=== PATIENT | male | born 1960 | race Caucasian/White ===

== ENCOUNTER → 2020-02-16 11:38 | Outpatient (BNVA) | payer BC, SELFPAY | PROVIDERS: Visit Provider Family Medicine | DX: Z12.5 Encounter for screening for malignant neoplasm of prostate; Z95.0 Presence of cardiac pacemaker; I50.9 Heart failure, unspecified; E78.2 Mixed hyperlipidemia; I10 Essential (primary) hypertension | CPT/HCPCS: 80053; 80061; 85025; G0103 ==

== ENCOUNTER → 2020-03-02 13:08 | Outpatient (BNVA) | payer BC, SELFPAY | PROVIDERS: Visit Provider Family Medicine | DX: R73.9 Hyperglycemia, unspecified (principal) | CPT/HCPCS: 83036 ==

== ENCOUNTER 2020-03-30 10:05 | Outpatient (CLI) | payer BC, SELFPAY ==
--- NOTE | 2020-03-30 10:15 | USCV_ITS ---
Tyree Ramirez Age: 59 Gender: M : 1960 Exam Date: 03/30/2020 10:39 Ordering Phys: Bryan Rueda MD ([email or web address]) Technologist: Maegan Montiel Exam Location: [facility] [place] Indication: BP: / HR: 70 Rhythm: Sinus Technical Quality: TDS MEASUREMENTS (Male / Female) Normal Values 2D ECHO LV Diastolic Diameter PLAX 5.0 cm 4.2 - 5.9 / 3.9 - 5.3 cm LV Systolic Diameter PLAX 3.8 cm LV Chamber Size 5.9 cm IVS Diastolic Thickness 2.0 cm 0.6 - 1.0 / 0.6 - 0.9 cm IVS Systolic Thickness 2.3 cm LVPW Diastolic Thickness 1.7 cm 0.6 - 1.0 / 0.6 - 0.9 cm LVPW Systolic Thickness 1.8 cm RV Chamber Size 3.5 cm LVOT Diameter 2.0 cm LV Ejection Fraction 2D Teich 46.8 % LV Ejection Fraction MOD 2C 46.4 % LV Ejection Fraction 2C AL 47.5 % LA Diameter 3.6 cm LA Width 3.2 cm LA Height 3.8 cm RA Width 3.9 cm RA Height 3.8 cm Aorta at Sinotubular Diameter 4.0 cm M-MODE LV Diastolic Diameter MM 7.6 cm 4.2 - 5.9 / 3.9 - 5.3 cm LV Systolic Diameter MM 6.1 cm LV Ejection Fraction MM Teich 39.5 % IVS Diastolic Thickness MM 1.9 cm 0.6 - 1.0 / 0.6 - 0.9 cm IVS Systolic Thickness MM 2.5 cm LVPW Diastolic Thickness MM 2.1 cm 0.6 - 1.0 / 0.6 - 0.9 cm LVPW Systolic Thickness MM 2.9 cm RV Diastolic Diameter MM 0.9 cm Aortic Annulus Diameter 4.9 cm LA Ao Ratio MM 0.8 MV E Point Septal Separation 2.0 cm DOPPLER AV Peak Velocity 131.0 cm/s LVOT Peak Velocity 63.0 cm/s AV Area Cont Eq vti 1.7 cm squared AV Area Cont Eq pk 1.5 cm squared MV Area PHT 5.4 cm squared Mitral E to A Ratio 1.2 MV E' Velocity 5.0 cm/s Mitral E to MV E' Ratio 16.6 Mitral E to LV E' Lateral Ratio 15.3 Mitral E to LV E' Septal Ratio 18.7 TR Peak Velocity 205.9 cm/s TR Peak Gradient 17.0 mmHg TR Mean Velocity 158.3 cm/s TR Mean Gradient 11.4 mmHg TR Velocity Time Integral 62.0 cm TV Peak E Velocity 53.0 cm/s Right Atrial Pressure 3.0 mmHg Pulmonary Artery Systolic Pressu 20.0 mmHg PV Peak Velocity 48.0 cm/s RV Acceleration Time 0.2 s RV Ejection Time 0.3 s RV AcT/ET 0.5 FINDINGS Left Ventricle Mildly increased left ventricular cavity size. Diffuse hypokinesia left ventricle with ejection fraction around 45%.Grade I/IV diastolic dysfunction (abnormal relaxation filling pattern), normal to mildly elevated filling pressures. Right Ventricle Pacemaker wire is noted.normal right ventricular size and systolic function. Right Atrium Pacemaker wire is noted Left Atrium Normal left atrial size. Mitral Valve Thickened mitral valve. Aortic Valve Thickened aortic valve. Tricuspid Valve No gross abnormalities noted Pulmonic Valve Pulmonic valve not well visualized. Pericardium No pericardial effusion. Aorta Normal aortic annulus size. CONCLUSIONS Mildly increased left ventricular cavity size. Diffuse hypokinesia left ventricle with ejection fraction around 45%. Grade I/IV diastolic dysfunction (abnormal relaxation filling pattern), normal to mildly elevated filling pressures. Thickened aortic and mitral valves. Pacemaker wire is noted in the right atrium right ventricle. No significant stenotic or regurgitant lesions. Technically difficult study because of the poor ultrasonic window. No previous studies are available for comparison Dr Bryan Rueda MD [facility] (Electronically Signed) Final Date: 30 March 2020 18:51 S
== END 2020-03-30 10:06 | disposition home or self-care (01) ==
LOC: RAD 10:12
PROVIDERS: PCP Family Medicine; Visit Provider Internal Medicine Cardiovascular Disease
DX: I35.0 Nonrheumatic aortic (valve) stenosis (principal); I42.8 Other cardiomyopathies; I05.9 Rheumatic mitral valve disease, unspecified
CPT/HCPCS: 93306

== ENCOUNTER 2020-05-04 08:34 | Outpatient (CLI) | payer BC, SELFPAY ==
[2020-05-04 08:52] VITALS: BMI 36.9
--- NOTE | 2020-05-04 08:56 | ECG_ITS ---
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 Interpretive Statements NAME OF STUDY: LEXISCAN SESTAMIBI STRESS TEST INDICATION: Decreased EF PROCEDURE: At the baseline, the EKG revealed 100% AV paced rhythm. Further interpretation is not possible. The baseline blood pressure was 135/84 mm Hg with a heart rate of 70 beats/min. Lexiscan was infused over a period of 20 seconds. A total of 0.4 milligrams of Lexiscan was infused. The stress phase was continued for a total of 5 minutes. Heart rate at the end of the stress phase was 72 with a blood pressure 129/73. The EKG at the peak infusion revealed no significant changes. Sestamibi was injected 20 seconds after the Lexiscan infusion. Blood pressure at the end of the recovery phase was 132/83 with a heart rate of 70 per minute. CONCLUSION: 1. No significant EKG changes with the LexiScan infusion 2. No LexiScan induced chest pain or cardiac arrhythmia 3. Normal blood pressure and heart rate response 4. Sestamibi/sestamibi perfusion scan pending; see separate report. Electronically Signed On 05-05-2020 11:02:41 CDT by Bryan Rueda M.D. [id number]
--- NOTE | 2020-05-04 08:57 | NMCV_ITS ---
NM mateo perf SPECT r/s* [id number] Tyree Ramirez Age: 59 Gender: M : 1960 Exam Date: 05/04/2020 09:39 Ordering Phys: Bryan Rueda MD ([email or web address]) Technologist: MARY Vazquez Exam Location: [facility] Indications: OTHER CARDIOMYOPATHIES STRESS TEST [facility] IMAGE PROTOCOL Rest/Stress 1 Lexiscan Day Radiopharmaceutical Dose (mCi) Administration Site Administered by Rest: Tc-99m 10.7 IV MARY Vazquez Sestamibi Stress:Tc-99m 32.8 IV MARY Vazquez Sestamibi Rest: 04-May-2020 60 Discovery 630 Stress: 04-May-2020 30 Discovery 630 0.4mg Lexiscan. Images obtained in supine and prone position. SPECT RESULTS Technical Quality: Excellent Raw Data Analysis: Normal Image Corrections: No attenuation or motion correction applied Summed Stress Score: 9 Summed Rest Score: 18 Summed Difference Score: 0 PERFUSION FINDINGS Moderate area of decreased tracer uptake in the basal mid and apical inferior, mid inferolateral, apical lateral and LV apex. Subtle area of reversibility was noted in the mid inferolateral region. FUNCTIONAL RESULTS (calculated via Gated SPECT) Stress Image LV EF (%): 30 Stress EDV (mL):334 TID: 1.09 Stress ESV (mL):235 FUNCTIONAL FINDINGS: Segmental wall motion analysis revealing severe diffuse hypokinesia left ventricle IMPRESSIONS 1. Myocardial perfusion imaging revealing a moderate area of decreased tracer uptake in the inferior and inferolateral regions with a subtle area of reversibility in the mid inferolateral region, suggestive of myocardial scarring in the distribution of the right coronary artery/circumflex artery with a very small area astrid-infarction ischemia. 2. Moderately diminished LV ejection fraction 30%. 3. Severe diffuse hypokinesia of the left ventricle. 4. Markedly dilated LV cavity with an end-systolic volume of 235 mL The above features may suggest some form of nonischemic cardiomyopathy with a possible small area of ischemia. No similar previous studies are available for comparison Dr Bryan Rueda MD [facility] (Electronically Signed) Final Date: 04 May 2020 20:57 S
--- NOTE | 2020-05-04 10:40 | SUR.PREOP ---
Patient reports no pain or discomfort prior to the start of the procedure.
[2020-05-04] MEDS: regadenoson 0.4 Mg/5 ml Syringe IVP (10:42)
[2020-05-04 11:19] VITALS: BP 154/62; PULSE 62
== END 2020-05-04 08:35 | disposition home or self-care (01) ==
LOC: CDL 08:36
PROVIDERS: PCP Family Medicine; Visit Provider Internal Medicine Cardiovascular Disease
DX: I42.8 Other cardiomyopathies (principal); I50.22 Chronic systolic (congestive) heart failure
CPT/HCPCS: 78452; 93017; A9500; J2785

== ENCOUNTER 2020-05-08 12:59 | Day surgery (SDC) | payer BC, SELFPAY ==
[2020-05-08] VITALS (13 sets, daily range): BP systolic 95–145; BP diastolic 44–88; PULSE 68–80; RESP 12–18; TEMP 36.4–39.6; O2SAT 92–97; BMI 36.9
--- NOTE | 2020-05-08 13:06 | W.ED.ABDPA2 ---
HPI - Abdominal Pain General: Chief Complaint: Abdominal Pain Stated Complaint: stomach/leg cramp /throwing up Time Seen by Provider: 05/08/20 13:03 Source: patient Mode of arrival: ambulatory History of Present Illness: HPI narrative: 59-year-old male who states he has been having right lower quadrant abdominal pain over the last day. He states that started this morning is very sharp in nature. He states it is worsened throughout the day and he has had some nausea and vomiting. He denies any diarrhea. He has had diverticulitis in the past. He has had no other abdominal surgeries. He denies any worsening or improving factors at this time. He has been afebrile. MD elicited complaint: abdominal pain Pertinent past history: none Onset (ago): hour(s) Pain Consistency: constant Location: RLQ Severity: moderate Quality: stabbing Radiation: none Exacerbating factors: nothing Relieving factors: nothing Associated Symptoms: Reports nausea and vomiting; Denies chills, dysuria and fever(s) Review of Systems Const: Denies: fever(s), chills, body aches or change in appetite Eyes: Denies: blurry vision or eye discomfort ENMT: Denies: throat pain or dental pain Card: Denies: chest pain Resp: Denies: dyspnea GI: Reports: abdominal pain, nausea and vomiting : Denies: dysuria Musc: Denies: neck pain or back pain Skin/Breast: Denies: rash Neuro: Denies: headache(s) Psych: Denies: depression Wing/Lymph: Denies: easy bruising All/Imm: Denies: urticaria PFSH ED PFSH: Medical History Benign essential hypertension with target blood pressure below 140/90 CHF (congestive heart failure) Elevated blood sugar Non-ischemic cardiomyopathy Pacemaker Syncope Surgical History S/P internal cardiac defibrillator procedure The WOUND SPECIALIST-D was interrogated today. Patient was found to have episodes of atrial flutter/fibrillation. Social History Smoking and tobacco status: never smoked Alcohol intake: never Physical Exam Const: COMMON NORMALS: no acute distress, patient oriented x3 and healthy appearing HENMT: COMMON NORMALS: normocephalic and atraumatic HEAD & SCALP: normocephalic and atraumatic Eye: COMMON NORMALS: Equal, round and reactive pupils present and EOMs intact bilaterally PUPIL: Yes Equal, round and reactive pupils present Neck/C-Spine: COMMON NORMALS: full ROM and supple Chest: COMMONS NORMALS: normal inspection of the chest and normal palpation of entire chest wall Resp: COMMON NORMALS: normal respiratory effort, No retractions, No use of accessory muscles and clear to auscultation bilaterally AUSCULTATION: clear to auscultation bilaterally Cardio: COMMON NORMALS: regular rate, regular rhythm and No murmurs present (Cardio) RATE: regular rate RHYTHM: regular rhythm GI: COMMON NORMALS: Normal to inspection, nondistended, normoactive bowel sounds present, Soft to palpation and no masses PALPATION: Yes Soft to palpation and Yes Tenderness to palpation present (GI) Details: RLQ Extremity: COMMON NORMALS: normal to inspection and full ROM Neuro: COMMON NORMALS: patient oriented x3, moves all extremities and no focal motor deficits Psych: COMMON NORMALS: mental status grossly normal, Normal thought process present and cooperative THOUGHT PROCESS: Normal thought process present Skin: COMMON NORMALS: no rashes or lesions noted and no wounds GENERAL SKIN EXAM: no rashes or lesions noted Course Vital Signs: Vital signs: Vital Signs Temperature 97.6 F 05/08/20 13:04 Pulse Rate 80 05/08/20 13:04 Respiratory Rate 18 05/08/20 13:32 Blood Pressure 128/83 05/08/20 13:04 Pulse Oximetry 96 05/08/20 13:04 MDM - Abdominal Pain MDM Narrative: Medical decision making narrative: Patient presents here with appendicitis. Patient is well-appearing here and is not septic. I spoke to Dr. Escamilla who is come to see patient will take him to the OR. Lab Data: Labs: Lab Results 05/08/20 05/08/20 Range/Units 13:19 13:19 WBC 17.3 H (4.0-10.0) 10^3/ uL RBC 4.60 (4.1-5.3) 10^6/u L Hgb 14.0 (11.7-16.6) g/dL Hct 43.9 (42.0-52.0) % MCV 95.4 H (80-94) fL MCH 30.4 (28.0-34.0) pg MCHC 31.9 (30.0-36.0) g/dL RDW 12.8 (12.1-15.1) % Plt Count 210 (130-400) 10^3/c mm MPV 10.6 H (7.4-10.4) fL Neut % (Auto) 84.5 % Lymph % (Auto) 6.9 % [place] % (Auto) 7.9 % Eos % (Auto) 0.1 % Baso % (Auto) 0.3 % Neut # (Auto) 14.61 H (1.8-7.7) 10^3/u L Lymph # (Auto) 1.2 (0.8-4.8) 10^3/u L [place] # (Auto) 1.4 H (0.2-0.9) 10^3/u L Eos # (Auto) 0.0 (0.0-0.8) 10^3/u L Baso # (Auto) 0.1 (0.0-0.1) 10^3/u L Nucleated RBC % (a uto) 0 % Nucleated RBCs # 0.0 /100WBC Sodium 138 (136-145) mmol/L Potassium 4.4 (3.5-5.1) mmol/L Chloride 105 (98-107) mmol/L Carbon Dioxide 24 (22-29) mmol/L Anion Gap 13.4 (5-19) BUN 13 (6-20) mg/dL Creatinine 0.7 (0.7-1.2) mg/dL GFR Calculation 116.2 (90-130) mL/min Glucose 171 H (65-115) mg/dL Calculated Osmolal ity 286 (285-295) mOsm/k g Calcium 9.1 (8.5-10.5) mg/dL Total Bilirubin 0.7 (0.15-1.2) mg/dL AST 38 (0-40) U/L ALT 39 (0-41) U/L Alkaline Phosphata se 88 (40-130) IU/L Total Protein 7.7 (6.6-8.7) g/dL Albumin 4.7 (3.5-5.2) g/dL Globulin 3.0 (1.3-4.6) g/dL Lipase 17 (13-60) U/L Imaging Data ^: CT Abd/Pel: Attestation: I personally reviewed and interpreted this imaging study as follows: Radiologist's impression: [address] [place] [address] CT Scan Report Signed Patient: Tyree Ramirez Unit #: [id number] : 1960 Age/Sex: 59 / M ADM Date: 05/08/20 Loc: ER Room/Bed: Attending Dr: Ordering Provider/Ordering MD: Holger Pozo MD Date of Service: 05/08/20 Procedure(s): CT abdomen pelvis w con* [id number] Accession Number(s): [id number] Report Number: [id number] PROCEDURE INFORMATION: Exam: CT Abdomen And Pelvis With Contrast Exam date and time: 05/08/2020 1:12 PM Age: 59 years old Clinical indication: Abdominal pain; Localized; Right lower quadrant (rlq); Patient HX: Rlq this am, history of diverticulitis; Additional info: Abd pain TECHNIQUE: Imaging protocol: Computed tomography of the abdomen and pelvis with intravenous contrast. Radiation optimization: All CT scans at this facility use at least one of these dose optimization techniques: automated exposure control; mA and/or kV adjustment per patient size (includes targeted exams where dose is matched to clinical indication); or iterative reconstruction. Contrast material: OMNI 300; Contrast volume: 95 ml; Contrast route: INTRAVENOUS (IV); COMPARISON: No relevant prior studies available. RADIATION DOSE METRICS: Total DLP (mGy-cm): 1642.24 FINDINGS: Liver: Normal. No mass. Gallbladder and bile ducts: Normal. No calcified stones. No ductal dilation. Pancreas: Normal. No ductal dilation. Spleen: Normal. No splenomegaly. Adrenals: Normal. No mass. Kidneys and ureters: Normal. No hydronephrosis. Stomach and bowel: Colonic diverticula are present although there are no CT findings to suggest diverticulitis. No bowel obstruction or wall thickening. Appendix: The appendix is distended with a diameter of 1.4 cm. There is associated inflammatory change. There is an appendicolith. Intraperitoneal space: Unremarkable. No free air. No significant fluid collection. Vasculature: Unremarkable. No abdominal aortic aneurysm. Lymph nodes: Unremarkable. No enlarged lymph nodes. Bladder: Unremarkable as visualized. Reproductive: Unremarkable as visualized. Bones/joints: Degenerative change is identified in the spine. There is no evidence for acute fracture or malalignment. Soft tissues: There is fat in the right inguinal canal. There is a fat containing periumbilical hernia. CT/CT abdomen pelvis w con* [id number] IMPRESSION: Findings are consistent with acute appendicitis. Discharge Plan Discharge Patient Disposition: Admitted As Inpatient Clinical Impression: Acute appendicitis Qualifiers: Acute appendicitis type: unspecified acute appendicitis type Qualified Code(s): K35.80 - Unspecified acute appendicitis Condition: Stable Referrals: Inez Velásquez MD [Primary Care Provider] - Coding Level of Care Code ED Chute Worker for g Fwd Exam Comprehensive
[2020-05-08] MEDS: iohexol 300 mg/mL 100 mL Btl IV (13:27)
[2020-05-08 13:28] LABS: Basophils # 0.1 10^3/uL (0.0-0.1); Basophils % 0.3 %; Eosinophils % 0.1 %; Hematocrit 43.9 % (42.0-52.0); Lymphocytes # 1.2 10^3/uL (0.8-4.8); Lymphocytes % 6.9 %; Mean Corpuscular HGB Conc 31.9 g/dL (30.0-36.0); Mean Corpuscular Hemoglobin 30.4 pg (28.0-34.0); Mean Corpuscular Volume 95.4 fL (80-94); Mean Platelet Volume 10.6 fL (7.4-10.4); Monocytes # 1.4 10^3/uL (0.2-0.9); Monocytes % 7.9 %; Neutrophils # 14.61 10^3/uL (1.8-7.7); Neutrophils % 84.5 %; Nucleated Red Blood Cells % 0 %; Platelet Count 210 10^3/cmm (130-400); Red Cell Distribution Width 12.8 % (12.1-15.1); White Blood Count 17.3 10^3/uL (4.0-10.0)
[2020-05-08] MEDS: sodium chloride 0.9% 1,000 ML 999 ML IV (13:29)
[2020-05-08] MEDS: ondansetron 2 mg/ML SDV 2 mL 4 MG IVP (13:31)
[2020-05-08] MEDS: morphine 4 mg/mL SDV 1 mL IVP (13:32)
[2020-05-08 13:44] LABS: Alanine Aminotransferase 39 U/L (0-41); Albumin Level 4.7 g/dL (3.5-5.2); Alkaline Phosphatase 88 IU/L (40-130); Anion Gap 13.4 (5-19); Aspartate Amino Transferase 38 U/L (0-40); Blood Urea Nitrogen 13 mg/dL (6-20); Calcium 9.1 mg/dL (8.5-10.5); Carbon Dioxide 24 mmol/L (22-29); Chloride 105 mmol/L (98-107); Glomerular Filtration Rate 116.2 mL/min (90-130); Glucose 171 mg/dL (65-115); Lipase 17 U/L (13-60); Osmolality Calculated 286 mOsm/kg (285-295); Potassium 4.4 mmol/L (3.5-5.1); Sodium 138 mmol/L (136-145); Total Bilirubin 0.7 mg/dL (0.15-1.2); Total Protein 7.7 g/dL (6.6-8.7)
[2020-05-08 14:13] LABS: Urine Appearance Hazy (CLEAR); Urine Color Yellow (Yellow)
[2020-05-08 14:14] LABS: Add Urine Microscopic? YES; Bilirubin Urine Neg (NEGATIVE); Blood Urine Neg (Negative); Glucose Urine UA 1+ (Normal); Ketones Urine Negative (Negative); Leukocyte Esterase Urine Trace (Negative); Nitrate Urine Negative (Negative); Protein Urine Neg (Negative); Specific Gravity, Urine 1.005 (1.005-1.030); Urobilinogen Urine 1 mg/dL (Negative); pH Urine 7 (5-7)
[2020-05-08 14:16] LABS: Add Urine Culture? Yes; Bacteria Urine 2+; RBC Urine 0-4 /hpf (0-2); Squamous Epithelial Cell Urine 0-4 (0-5); WBC Urine 15-25 /hpf (0-5)
--- NOTE | 2020-05-08 14:31 | PM.HP ---
Providers/Chief Complaint Admitting Physician: General Surgery Compa Escamilla MD Primary Care Provider: Inez Velásquez MD Chief Complaint: stomach/leg cramp /throwing up History of Present Illness Tyree Ramirez is a 59 year old male who awoke this morning around 2:30 AM with right lower quadrant abdominal pain. He denies any fevers or chills, but did develop nausea and vomited once this morning. There is no evidence of hematemesis. He says his bowel function has been normal. He eventually came to the hospital because of the worsening pain and a CAT scan revealed evidence of acute appendicitis. Review of Systems General: Reports: 10 or more systems reviewed and unremarkable except in HPI and below Const: Denies: fever(s) GI: Reports: abdominal pain, nausea and vomiting; Denies: change in bowel habits Medications/Allergies Home Medications Medication Instructions Recorded Confirmed Last Taken Type aspirin 81 mg tablet,delayed 81 mg PO DAILY 02/16/20 05/08/20 05/07/20 History release blood sugar diagnostic #50 each 03/08/20 05/08/20 Unknown Rx blood-glucose meter #1 each 03/08/20 05/08/20 Unknown Rx atorvastatin 80 mg tablet 80 mg PO DAILY #90 tab 04/20/20 05/08/20 05/08/20 Rx carvedilol 12.5 mg tablet 12.5 mg PO BID #180 tab 04/20/20 05/08/20 05/08/20 Rx digoxin 125 mcg (0.125 mg) tablet 125 mcg PO DAILY #90 tab 04/20/20 05/08/20 05/08/20 Rx furosemide 20 mg tablet 20 mg PO DAILY #90 tab 04/20/20 05/08/20 05/08/20 Rx lisinopril 5 mg tablet 5 mg PO DAILY #90 tab 04/20/20 05/08/20 05/08/20 Rx metformin 500 mg tablet 500 mg PO BID #180 tab 04/20/20 05/08/20 05/08/20 Rx potassium chloride 10 mEq 10 meq PO BID #180 cap 04/20/20 05/08/20 05/08/20 Rx capsule,extended release Allergies Allergy/AdvReac Type Severity Reaction Status Date / Time No Known Allergies Allergy Verified 05/08/20 13:42 PFSH Acute PFSH: Medical History (Updated 05/08/20 @ 14:34 by Compa Escamilla MD) Benign essential hypertension with target blood pressure below 140/90 CHF (congestive heart failure) Diverticulitis One episode around 2012 Diverticulosis Elevated blood sugar Non-ischemic cardiomyopathy Pacemaker Syncope Surgical History (Updated 05/08/20 @ 14:33 by Compa Escamilla MD) S/P internal cardiac defibrillator procedure The TRANSPORTATION PLANNING ENGINEER-D was interrogated. Patient was found to have episodes of atrial flutter/fibrillation. Wrist fracture, left Repaired with hardware Social History Smoking and tobacco status: never smoked Alcohol intake: never Vitals/I&O/Wt Last Vital Signs Temp 97.6 F 05/08/20 13:04 Pulse 70 05/08/20 14:15 Resp 18 05/08/20 14:15 BP 145/82 05/08/20 14:15 Pulse Ox 95 05/08/20 14:15 Weight last 48 hrs Weight 280 lb Physical Exam Narrative: EXAM NARRATIVE: The patient was encountered in his room in the emergency department. He does not appear to be in any acute distress. He actually has an elevated temperature now of 101.4F. The pupils seem equal. No carotid bruits are heard. The lungs are clear anteriorly. The heart is regular. The abdomen is moderately to severely obese but is soft. Bowel sounds may be slightly hypoactive. There is an incarcerated umbilical hernia that is not reducible but is only minimally tender. The patient has a positive Rovsing's sign. His maximum point of tenderness is over McBurney's point or slightly inferior to that in the right lower quadrant. No obvious masses are palpated. The extremities reveal no edema. Neurologically the patient appears to be grossly intact. Data : 05/08/20 13:19 05/08/20 13:19 CT Abd/Pel: Radiologist's impression: CT abdomen/pelvis 05/08/2020 iMPRESSION: Findings are consistent with acute appendicitis. A&P Assessment and plan (1) Acute appendicitis: I agree with the CT findings of acute appendicitis. The patient also has a fat-containing umbilical hernia as documented. I discussed appendicitis, appendectomy is, conservative management, etc. surgical risks including bleeding, infection, internal organ injury, etc. were all gone over. The patient seems understand and would like to proceed with an appendectomy today. The patient last had some soda around 11:00 this morning. We will plan to proceed with an laparoscopic or possibly open appendectomy this afternoon. Status: Acute Qualifiers: Acute appendicitis type: unspecified acute appendicitis type Qualified Code(s): K35.80 - Unspecified acute appendicitis (2) Umbilical hernia: I made the patient aware that we could put 1 of our ports right at the site and he would a repair of his umbilical hernia performed as part of this procedure. He is agreeable. Status: Acute Attestations Medical Necessity Statement*: The patient is anxious to try to go home today unless there is some contraindication found at the time of surgery. He will be kept as an outpatient for now. Coding Level of Care Code Acute Reception Clerk for [facility] Shaina Diagnoses Acute appendicitis K35.80 Acute appendicitis type: unspecified acute appendicitis type Umbilical hernia K42.9
--- NOTE | 2020-05-08 15:04 | P.ANESASSM_ITS ---
Pre-Anesthetic Assessment Pre-Anesthetic Assessment: Height/Weight: Height 1.85 m Weight 127.006 kg Temp Pulse Resp BP Pulse Ox 103.3 F H 70 18 127/88 97 05/08/20 14:48 05/08/20 14:48 05/08/20 14:48 05/08/20 14:48 05/08/20 14:48 Proposed Procedure: Operation Date: 05/08/20 14:45 Proposed Procedures p Laparoscopic Appendectomy(Not Applicable) - Compa Escamilla MD Last intake: Intake Last Liquid Date 05/08/20 Last Liquid Time 13:00 Last Solid Date 05/07/20 Last Solid Time 21:00 Exam: Pre-Anes Outpt Exam: oriented x 3 Airway: Submandibular: WNL Cervical ROM: WNL MP: 2 Dentition: Full History/ROS: Other (history of pacer/defib placed in [place].) Pulmonary: Pulmonary: Sleep apnea CV/HEM: CV/HEM: CAD and CHF (recent stress test negative for ischemia but with LVEF 30%. Patient has had several episodes where AICD fired, most recently 10/1999) Metabolic: Metabolic: Morbid obesity Anesthetic Plan: ASA status: 3E Anesthesia: General Other: plan RSI with glidescope available PFS Anesthesia PFSH: Medical History (Updated 05/08/20 @ 14:34 by Compa Escamilla MD) Benign essential hypertension with target blood pressure below 140/90 CHF (congestive heart failure) Diverticulitis One episode around 2012 Diverticulosis Elevated blood sugar Non-ischemic cardiomyopathy Pacemaker Syncope Surgical History (Updated 05/08/20 @ 14:55 by Compa Escamilla MD) S/P internal cardiac defibrillator procedure [place] Wrist fracture, left Repaired with hardware Social History Smoking and tobacco status: never smoked Alcohol intake: never Data Anesthesia CBC & Chem 7: 05/08/20 13:19 05/08/20 13:19 Other Labs: Laboratory Results - last 48 hr 05/08/20 05/08/20 05/08/20 13:19 13:19 13:49 WBC 17.3 H RBC 4.60 Hgb 14.0 Hct 43.9 MCV 95.4 H MCH 30.4 MCHC 31.9 RDW 12.8 Plt Count 210 MPV 10.6 H Neut % (Auto) 84.5 Lymph % (Auto) 6.9 [place] % (Auto) 7.9 Eos % (Auto) 0.1 Baso % (Auto) 0.3 Neut # (Auto) 14.61 H Lymph # (Auto) 1.2 [place] # (Auto) 1.4 H Eos # (Auto) 0.0 Baso # (Auto) 0.1 Nucleated RBC % (auto) 0 Nucleated RBCs # 0.0 Sodium 138 Potassium 4.4 Chloride 105 Carbon Dioxide 24 Anion Gap 13.4 BUN 13 Creatinine 0.7 GFR Calculation 116.2 Glucose 171 H Calculated Osmolality 286 Calcium 9.1 Total Bilirubin 0.7 AST 38 ALT 39 Alkaline Phosphatase 88 Total Protein 7.7 Albumin 4.7 Globulin 3.0 Lipase 17 Urine Color Yellow Urine Appearance Hazy A Urine pH 7 Ur Specific [place] 1.005 Urine Protein Neg Urine Glucose (UA) 1+ Urine Ketones Negative Urine Blood Neg Urine Nitrate Negative Urine Bilirubin Neg Urine Urobilinogen 1 H Ur Leukocyte Esterase Trace H Urine RBC 0-4 H Urine WBC 15-25 H Ur Squamous Epith Cells 0-4 H Amorphous Sediment Not Reportable Urine Bacteria 2+ H Cardiac Studies: No Data to Display
--- NOTE | 2020-05-08 15:06 | SUR.PREOP ---
PT AWAKE ALERT WITH AT BEDSIDE PT TO [facility] [place] [facility] PER CART PT ALERT TALKATIVE WITH OR NURSE AND ANESTHESIA, IV TO LT AC OR NURSE TO START WITH ORDERED ANTIBIOTICS. PT TEMP 103.3 ANESTHESIA AWARE.
[2020-05-08] MEDS: metroNIDAZOLE IV 500 MG/100 ML PREMIX 100 MG IV (15:25)
--- NOTE | 2020-05-08 15:53 | PM.OP ---
Operative Report Date of procedure: May 08, 2020 Pre-op Diagnosis: Acute appendicitis. Post-op diagnosis: same Procedure Done: Laparoscopic appendectomy. Specimens removed/disposition: Appendix. Surgeon: Compa Escamilla Anesthesia: General Estimated blood loss (mL): 5 Complications: None. Condition: stable Disposition: PACU Procedure: The patient was brought to the Operating Room and was placed in a supine position on the operating room table. General endotracheal anesthesia was induced. The abdomen was prepped and draped in a sterile fashion. A small vertical incision was carried out in the inferior aspect/base of the umbilicus. Blunt dissection was carried out down to the fascia, where the patient's hernia defect was identified. The surrounding herniated fatty tissue was freed from the subcutaneous tissue and was reduced through a defect measuring perhaps 1.5 cm in diameter. A stay suture of 0 Vicryl was placed on either side of the midline. The Jered port was placed directly into the peritoneal cavity through the hernia defect and was held in place with the inflatable balloon. The peritoneal cavity was insufflated with carbon dioxide. The laparoscope was used to inspect the peritoneal cavity. No gross abnormalities were initially noted. Two 5-millimeter ports were placed in the left lower quadrant under direct vision. The patient was tilted in a Trendelenburg position and slightly to the left side. A laparoscopic Dumont was used to elevate the cecum and the appendix was identified. The appendix was dilated and had some purulent material on its surface but no gross evidence of perforation was present. The mesoappendix appeared edematous. The appendix was freed using blunt dissection and was then elevated. The mesoappendix was divided using cautery to maintain hemostasis at the base of the appendix. The base of the appendix appeared healthy and was divided using an endoscopic stapler. The appendix was removed from the peritoneal cavity after being placed in a laparoscopic bag. The right lower quadrant and pelvis were irrigated. The staple line on the cecum was identified and appeared to be in good condition. The Jered port was removed from the umbilical site and the stay sutures of Vicryl were tied to each other vertically at the umbilicus. Some inverted interrupted sutures of 0 Prolene were also placed, closing the fascial/hernia defect so that it was airtight. A final round of irrigation was carried out in the right lower quadrant and the pelvis. No ongoing problems were seen. The remaining ports were removed from the abdominal wall as the pneumoperitoneum was evacuated. All skin incisions were closed using inverted interrupted sutures of 4-0 Vicryl. Benzoin and Steri-Strips were placed over the incisions and Band-Aids followed. The patient was taken to the Recovery Room in stable condition postoperatively.
--- NOTE | 2020-05-08 16:33 | SUR.PHASEII ---
Received patient from OR. All preop was done in ER.
== END 2020-05-08 17:43 | disposition home or self-care (01) ==
LOC: ER 13:57 → OPS 14:28
PROVIDERS: Emergency Provider Emergency Medicine; PCP Family Medicine; Visit Provider Surgery
PROC: 0DTJ4ZZ Resection of Appendix, Percutaneous Endoscopic Approach (ICD-10-PCS; CPT 44970; principal; 2020-05-08 14:45)
DX: K35.80 Unspecified acute appendicitis (principal); K42.9 Umbilical hernia without obstruction or gangrene; G47.30 Sleep apnea, unspecified; I25.10 Atherosclerotic heart disease of native coronary artery without angina pectoris; I50.9 Heart failure, unspecified; Z95.0 Presence of cardiac pacemaker; E66.01 Morbid (severe) obesity due to excess calories; Z68.36 Body mass index [BMI] 36.0-36.9, adult; Z79.82 Long term (current) use of aspirin
CPT/HCPCS: 44970; 12345; 36415; 74177; 80053; 81001; 83690; 85025; 87086; 88304; 96375; 99283; J0131; J0690; J2270; J2405; J2704; J2710; J2765; J3010; J3490; J7030; Q9967; S0030

== ENCOUNTER → 2020-06-01 11:19 | Outpatient (BNVA) | payer BC, SELFPAY | PROVIDERS: PCP Family Medicine; Visit Provider Family Medicine | DX: E11.9 Type 2 diabetes mellitus without complications (principal); E78.2 Mixed hyperlipidemia | CPT/HCPCS: 80053; 80061; 83036 ==

== ENCOUNTER 2020-06-21 12:00 | Outpatient (CLI) | payer BC, SELFPAY | END 2020-06-21 12:01 | disposition home or self-care (01) | LOC: SLEEP 06-22 11:40 | PROVIDERS: PCP Family Medicine; Visit Provider Family Medicine | DX: G47.30 Sleep apnea, unspecified (principal) | CPT/HCPCS: G0399 ==

== ENCOUNTER → 2020-07-12 11:26 | Outpatient (BNVA) | payer BC, SELFPAY | PROVIDERS: PCP Family Medicine; Visit Provider Nurse Practitioner Family | DX: Z11.59 Encounter for screening for other viral diseases (principal); Z20.828 Contact with and (suspected) exposure to other viral communicable diseases; J06.9 Acute upper respiratory infection, unspecified | CPT/HCPCS: 87635 ==

== ENCOUNTER 2020-09-12 20:00 | Outpatient (CLI) | payer BC, SELFPAY | END 2020-09-12 20:01 | disposition home or self-care (01) | LOC: SLEEP 09-13 09:59 | PROVIDERS: PCP Family Medicine; Visit Provider Family Medicine | DX: G47.33 Obstructive sleep apnea (adult) (pediatric) (principal) | CPT/HCPCS: 95811 ==

== ENCOUNTER → 2020-12-08 11:55 | Outpatient (BNVA) | payer SELFPAY | PROVIDERS: PCP Family Medicine; Visit Provider Family Medicine | DX: M25.512 Pain in left shoulder (principal); E11.9 Type 2 diabetes mellitus without complications; I10 Essential (primary) hypertension; E78.2 Mixed hyperlipidemia | CPT/HCPCS: 73030; 80053; 80061; 83036; 84443; 85025 ==

== ENCOUNTER → 2021-02-08 12:46 | Outpatient (BNVA) | payer OTHER, SELFPAY | PROVIDERS: PCP Family Medicine; Visit Provider Internal Medicine Cardiovascular Disease | DX: R06.02 Shortness of breath (principal); I42.8 Other cardiomyopathies; I50.33 Acute on chronic diastolic (congestive) heart failure | CPT/HCPCS: 80048; 83880 ==

== ENCOUNTER → 2021-03-19 16:43 | Outpatient (BNVA) | payer OTHER, SELFPAY | PROVIDERS: PCP Family Medicine; Visit Provider Nurse Practitioner Family | DX: I50.22 Chronic systolic (congestive) heart failure (principal) | CPT/HCPCS: 80048; 83880 ==

== ENCOUNTER → 2021-03-20 12:07 | Outpatient (BNVA) | payer OTHER, SELFPAY | PROVIDERS: PCP Family Medicine; Visit Provider Family Medicine | DX: E11.9 Type 2 diabetes mellitus without complications (principal); E78.2 Mixed hyperlipidemia; I10 Essential (primary) hypertension | CPT/HCPCS: 80053; 80061; 83036; 84443; 85025 ==

== ENCOUNTER 2021-03-28 08:59 | Outpatient (CLI) | payer OTHER, SELFPAY ==
--- NOTE | 2021-03-28 09:30 | USCV_ITS ---
Tyree Ramirez Age: 60 Gender: M : 1960 Exam Date: 03/28/2021 09:30 Ordering Phys: Bryan Rueda MD ([email or web address]) Technologist: Maegan Montiel Exam Location: [facility] – [place] Indication: CARDIOMYOPATHY BP: / HR: 89 Rhythm: Sinus Technical Quality: TDS MEASUREMENTS (Male / Female) Normal Values 2D ECHO LV Diastolic Diameter PLAX 5.0 cm 4.2 - 5.9 / 3.9 - 5.3 cm LV Systolic Diameter PLAX 4.7 cm LV Chamber Size 6.1 cm IVS Diastolic Thickness 1.7 cm 0.6 - 1.0 / 0.6 - 0.9 cm IVS Systolic Thickness 2.0 cm LVPW Diastolic Thickness 1.5 cm 0.6 - 1.0 / 0.6 - 0.9 cm LVPW Systolic Thickness 2.3 cm RV Chamber Size 4.7 cm LVOT Diameter 2.0 cm LV Ejection Fraction 2D Teich 13.4 % LV Ejection Fraction MOD 2C 42.3 % LV Ejection Fraction 2C AL 43.5 % LA Diameter 4.0 cm LA Width 4.0 cm LA Height 4.3 cm RA Width 5.5 cm RA Height 5.6 cm Aorta at Sinotubular Diameter 4.0 cm M-MODE LV Diastolic Diameter MM 6.0 cm 4.2 - 5.9 / 3.9 - 5.3 cm LV Systolic Diameter MM 4.5 cm LV Ejection Fraction MM Teich 47.7 % IVS Diastolic Thickness MM 1.8 cm 0.6 - 1.0 / 0.6 - 0.9 cm IVS Systolic Thickness MM 2.2 cm LVPW Diastolic Thickness MM 1.6 cm 0.6 - 1.0 / 0.6 - 0.9 cm LVPW Systolic Thickness MM 2.3 cm Aortic Annulus Diameter 4.9 cm LA Ao Ratio MM 0.8 MV E Point Septal Separation 1.3 cm FINDINGS Left Ventricle Diffuse hypokinesis of the left ventricle with an ejection fraction of around 43%. Mildly dilated LV cavity. Patient was found to have frequent arrhythmias during the study. Ejection fraction estimation and the segmental wall motion analysis could be misleading. Right Ventricle The right ventricle is normal in size and function. Right Atrium The right atrium is normal in size. Left Atrium The left atrium is normal in size. Mitral Valve Thickened mitral valve. Mild mitral annular calcification. Aortic Valve Minimally thickened Tricuspid Valve No gross abnormalities noted Pulmonic Valve Pulmonic valve not well visualized. Pericardium Normal pericardium without effusion. Aorta Normal ascending aorta dimension. CONCLUSIONS Diffuse hypokinesis of the left ventricle with an ejection fraction of around 43%. Mildly dilated LV cavity. Patient was found to have frequent arrhythmias during the study. Ejection fraction estimation and the segmental wall motion analysis could be misleading. Thickened mitral valve. Mild mitral annular calcification. There is no pericardial effusion. Technically difficult study because of the poor ultrasonic window. Dr Bryan Rueda MD FAC (Electronically Signed) Final Date: 29 March 2021 08:10 S
== END 2021-03-28 09:00 | disposition home or self-care (01) ==
LOC: RAD 09:03
PROVIDERS: PCP Family Medicine; Visit Provider Internal Medicine Cardiovascular Disease
DX: I05.9 Rheumatic mitral valve disease, unspecified (principal); I42.8 Other cardiomyopathies; Z95.0 Presence of cardiac pacemaker; I50.22 Chronic systolic (congestive) heart failure
CPT/HCPCS: 93308

== ENCOUNTER → 2021-04-10 11:44 | Outpatient (BNVA) | payer OTHER, SELFPAY | PROVIDERS: PCP Family Medicine; Visit Provider Internal Medicine Cardiovascular Disease | DX: R06.02 Shortness of breath (principal); I50.22 Chronic systolic (congestive) heart failure; I50.33 Acute on chronic diastolic (congestive) heart failure; I42.8 Other cardiomyopathies | CPT/HCPCS: 80048; 83880 ==

== ENCOUNTER → 2021-07-10 12:43 | Outpatient (BNVA) | payer OTHER, SELFPAY | PROVIDERS: PCP Family Medicine; Visit Provider Internal Medicine Cardiovascular Disease | DX: R25.2 Cramp and spasm (principal); N18.9 Chronic kidney disease, unspecified; E78.5 Hyperlipidemia, unspecified; R06.02 Shortness of breath | CPT/HCPCS: 80048; 80076; 83735; 84443 ==

== ENCOUNTER 2021-07-27 13:47 | Emergency (ER) | payer OTHER, SELFPAY ==
[2021-07-27 13:59] VITALS: BP 129/78; PULSE 70; RESP 16; TEMP 36.3; O2SAT 97; BMI 36.9
[2021-07-27 14:13] LABS: Glucose Point of Care 335 mg/dL (70-110)
--- NOTE | 2021-07-27 15:07 | XRR_ITS ---
PROCEDURE INFORMATION: Exam: XR Chest Exam date and time: 07/27/2021 3:07 PM Age: 61 years old Clinical indication: Pain; Angina pectoris; Prior surgery; Surgery type: Pacemaker; Additional info: Hyperglycemia; R/O underlying infection TECHNIQUE: Imaging protocol: XR of the chest. Views: 1 view. COMPARISON: CR XR shoulder LT min 2V* [id number] 12/08/2020 12:02 PM FINDINGS: Tubes, catheters and devices: Cardiac pacer device noted in the left chest wall. Lungs: Unremarkable. No consolidation. Pleural spaces: Unremarkable. No pleural effusion. No pneumothorax. Heart/Mediastinum: No cardiomegaly. Bones/joints: Visualized osseous structures are intact. XR/XR chest 1V portable [id number] IMPRESSION: No acute findings. Radiation Dose CTDIVOL = (mGy): DLP = (mGy-cm)
--- NOTE | 2021-07-27 15:07 | W.ED.GENADLT ---
HPI - General Adult General: Chief complaint: General Medical Stated complaint: HIGH SUGAR Time Seen by Provider: 07/27/21 14:50 Source: patient and family () Mode of arrival: ambulatory Limitations: no limitations History of Present Illness: HPI narrative: Patient is a nice 61-year-old male with a history of CHF (last EF 43%), DM, HTN, cardiomyopathy, pacemaker/defibrillator, hyperlipidemia here along with his for concerns of hyperglycemia. Patient states over the past several days he has noticed polydipsia and frequent urination. He states he checked his blood sugar (he reports he does not do this as much as he should) and states it was running in the high 200s. Last HgA1c was in February 2021 and was 8.2. Patient has not had any changes to his medications recently apart from being placed on amiodarone by his cooker syrup. Patient takes Metformin 500 mg twice daily for his diabetes. He is not complaining of abdominal pain. He had one episode of vomiting today. No diarrhea. Onset (ago): day(s) Associated symptoms: Reports dyspnea (chronically with exertion; at baseline) and vomiting (x1 today); Deny chest pain, headache(s), nausea, rash, palpitations or syncope Treatments prior to arrival: none Review of Systems Const: Denies: fever(s), chills, body aches or fatigue Card: Denies: chest pain, palpitations, edema, lightheadedness, syncope or pre-syncope Resp: Reports: dyspnea (chronically with exertion; at baseline) GI: Reports: vomiting (x1 today); Denies: abdominal pain, nausea, hematemesis or diarrhea : Reports: urinary frequency; Denies: flank pain, difficulty urinating, dysuria or urinary dribbling Musc: Denies: neck pain, back pain, extremity pain or joint pain Skin/Breast: Denies: rash Neuro: Denies: headache(s) or dizziness Endo: Reports: polyuria and polydipsia PFSH ED PFSH: Medical History Acute appendicitis Benign essential hypertension with target blood pressure below 140/90 Cardiomyopathy CHF (congestive heart failure) Diabetes mellitus Diverticulitis One episode around 2012 Diverticulosis Ejection fraction < 50% Elevated blood sugar Non-ischemic cardiomyopathy Pacemaker Reduced ejection fraction concurrent with and due to chronic heart failure Syncope Umbilical hernia Ventricular arrhythmia Surgical History Hx of appendectomy S/P internal cardiac defibrillator procedure [place] Wrist fracture, left Repaired with hardware Family History Father Anesthesia complication Bleeding disorder Clotting disorder CAD (coronary artery disease) Chronic kidney disease (CKD) Lung disease Mother Cancer Diabetes Family/Other Dementia Denies family history of Suicide Stroke Social History Alcohol intake: former Physical Exam Const: COMMON NORMALS: no acute distress, patient oriented x3, no limitations and alert NUTRITIONAL APPEARANCE: obese ORIENTATION/CONSCIOUSNESS: Yes awake, Yes oriented to person, Yes oriented to place and Yes oriented to time HENMT: COMMON NORMALS: normocephalic and atraumatic HEAD & SCALP: normocephalic and atraumatic Resp: COMMON NORMALS: normal respiratory effort and clear to auscultation bilaterally AUSCULTATION: clear to auscultation bilaterally Cardio: COMMON NORMALS: regular rate and regular rhythm RATE: regular rate RHYTHM: regular rhythm GI: COMMON NORMALS: Normal to inspection, nondistended, normoactive bowel sounds present, Soft to palpation, non-tender, No hepatosplenomegaly present and no masses PALPATION: Yes Soft to palpation and Yes No hepatosplenomegaly present Extremity: COMMON NORMALS: normal to inspection Neuro: KAREEM COMA SCALE: document GCS findings [place] coma scale eye opening: Spontaneous Kareem coma scale verbal response: Orientated Kareem coma scale motor response: Obey commands [place] coma scale total score: 15 COMMON NORMALS: patient oriented x3, moves all extremities, no focal motor deficits and no sensory deficits noted SENSORIUM/ORIENTATION: Yes alert, Yes oriented to person, Yes oriented to place and Yes oriented to time Skin: COMMON NORMALS: no rashes or lesions noted GENERAL SKIN EXAM: no rashes or lesions noted Course Vital Signs: Vital signs: Vital Signs Temperature 97.3 F L 07/27/21 13:59 Pulse Rate 78 07/27/21 17:25 Respiratory Rate 18 07/27/21 17:25 Blood Pressure 147/86 07/27/21 17:25 Pulse Oximetry 99 07/27/21 17:25 MDM - General Adult MDM Narrative: Medical decision making narrative: Patient is a nice 61-year-old male here for hyperglycemia. Sugar upon arrival was 330s. He was given a small amount of insulin here and repeat was 250. Last hemoglobin A1c was 8.2 which corresponds to an average blood sugar in the 180s. Fluids were held secondary to patient's CHF and reduced EF. Labs are unremarkable. UA does have some nitrates. He has no urinary complaints so won't treat for UTI at this time. Will culture. Vitals are normal. He has negative serum ketones. I have no suspicion for DKA at this time. Sounds like he chronically has poor control of his sugars. Will increase Metformin to 1000mg in the morning and keep him at 500mg in the evening and recommend he get better at checking his sugars and follow up with PCP so they can adjust meds further if needed. Return to ED precautions given. Lab Data: Labs: Lab Results 07/27/21 07/27/21 07/27/21 14:06 15:09 15:09 WBC 10.3 10^3/uL H 10 ^3/uL (4.0-10.0) RBC 5.04 10^6/uL 10^6 /uL (4.1-5.3) Hgb 15.0 g/dL g/dL (11.7-16.6) Hct 44.5 % % (42.0-52.0) MCV 88.3 fl fl (80-94) MCH 29.8 pg pg (28.0-34.0) MCHC 33.7 g/dL g/dL (30.0-36.0) RDW 12.5 % % (12.1-15.1) Plt Count 207 10^3/cmm 10^3 /cmm (130-400) MPV 11.2 fL H fL (7.4-10.4) Neut % (Auto) 75.8 % % Lymph % (Auto) 16.8 % % Bullitt % (Auto) 5.4 % % Eos % (Auto) 0.9 % % Baso % (Auto) 0.8 % % Neut # (Auto) 7.81 10^3/uL H 10 ^3/uL (1.8-7.7) Lymph # (Auto) 1.7 10^3/uL 10^3/ uL (0.8-4.8) Bullitt # (Auto) 0.6 10^3/uL 10^3/ uL (0.2-0.9) Eos # (Auto) 0.1 10^3/uL 10^3/ uL (0.0-0.8) Baso # (Auto) 0.1 10^3/uL 10^3/ uL (0.0-0.1) Nucleated RBC % (a uto) 0 % % Nucleated RBCs # 0.0 /100WBC /100W BC Sodium 137 mmol/L mmol/L (136-145) Potassium 4.5 mmol/L mmol/L (3.5-5.1) Chloride 101 mmol/L mmol/L (98-107) Carbon Dioxide 24 mmol/L mmol/L (22-29) Anion Gap 16.5 (5-19) BUN 18 mg/dL mg/dL (6-20) Creatinine 0.7 mg/dL mg/dL (0.7-1.2) GFR Calculation 115.4 mL/min mL/m in (90-130) Glucose 322 mg/dL H mg/dL (65-115) POC Glucose 335 mg/dL H mg/dL (70-110) Calculated Osmolal ity 298 mOsm/kg H mOs m/kg (285-295) Calcium 9.3 mg/dL mg/dL (8.5-10.5) Total Bilirubin 0.8 mg/dL mg/dL (0.15-1.2) AST 50 U/L H U/L (0-40) ALT 54 U/L H U/L (0-41) Alkaline Phosphata se 103 IU/L IU/L (40-130) Total Protein 7.2 g/dL g/dL (6.6-8.7) Albumin 4.5 g/dL g/dL (3.5-5.2) Globulin 2.7 g/dL g/dL (1.3-4.6) Urine Color Urine Appearance Urine pH Ur Specific Gravit y Urine Protein Urine Glucose (UA) Urine Ketones Urine Blood Urine Nitrate Urine Bilirubin Urine Urobilinogen Ur Leukocyte Lamar ase Urine RBC Urine WBC Ur Squamous Epith Cells Amorphous Sediment Urine Bacteria Urine Mucus Serum Ketones 07/27/21 07/27/21 07/27/21 15:09 16:04 16:20 WBC RBC Hgb Hct MCV MCH MCHC RDW Plt Count MPV Neut % (Auto) Lymph % (Auto) Bullitt % (Auto) Eos % (Auto) Baso % (Auto) Neut # (Auto) Lymph # (Auto) Bullitt # (Auto) Eos # (Auto) Baso # (Auto) Nucleated RBC % (a uto) Nucleated RBCs # Sodium Potassium Chloride Carbon Dioxide Anion Gap BUN Creatinine GFR Calculation Glucose POC Glucose 255 mg/dL H mg/dL (70-110) Calculated Osmolal ity Calcium Total Bilirubin AST ALT Alkaline Phosphata se Total Protein Albumin Globulin Urine Color Straw (Yellow) Urine Appearance Clear (CLEAR) Urine pH 5 (5-7) Ur Specific Gravit y 1.015 (1.005-1.030) Urine Protein Neg (Negative) Urine Glucose (UA) 4+ H (Normal) Urine Ketones Negative (Negative) Urine Blood Neg (Negative) Urine Nitrate Positive H (Negative) Urine Bilirubin Neg (Negative) Urine Urobilinogen Norm mg/dL mg/dL (Negative) Ur Leukocyte Lamar ase Negative (Negative) Urine RBC None /hpf /hpf (0-2) Urine WBC 0-4 /hpf H /hpf (0-5) Ur Squamous Epith Cells 0-4 /hpf H /hpf (0-5) Amorphous Sediment Not Reportable Urine Bacteria 2+ /hpf H /hpf (NONE) Urine Mucus Trace /hpf /hpf Serum Ketones Negative (Negative) Imaging Data^: CXR: Radiologist's impression: [address] [id number] ReportSigned Patient: Tyree Ramirez JUn #: [id number]: 1960cct#:[id number]/Sex: 61 / MADM Date: 07/27/21Loc: ERRoom/Bed:Attending Dr: Ordering Provider/Ordering MD: Delmis Cueto Date of Service: 07/27/21 Procedure(s): XR chest 1V portable [id number] Accession Number(s): [id number] Report Number: [id number] PROCEDURE INFORMATION: Exam: XR Chest Exam date and time: 07/27/2021 3:07 PM Age: 61 years old Clinical indication: Pain; Angina pectoris; Prior surgery; Surgery type: Pacemaker; Additional info: Hyperglycemia; R/O underlying infection TECHNIQUE: Imaging protocol: XR of the chest. Views: 1 view. COMPARISON: CR XR shoulder LT min 2V* [id number] 12/08/2020 12:02 PM FINDINGS: Tubes, catheters and devices: Cardiac pacer device noted in the left chest wall. Lungs: Unremarkable. No consolidation. Pleural spaces: Unremarkable. No pleural effusion. No pneumothorax. Heart/Mediastinum: No cardiomegaly. Bones/joints: Visualized osseous structures are intact. XR/XR chest 1V portable [id number] IMPRESSION: No acute findings. Radiation Dose CTDIVOL = (mGy): DLP = (mGy-cm) Dictated By:Lebron Leger DOSigned By:Lebron Leger DOSigned Date/Time:07/27/21 [id number]/ [id number] Discharge Plan Discharge Patient Disposition: Home Clinical Impression: Hyperglycemia Condition: Stable Prescriptions: New metformin 500 mg tablet 500 mg PO BID Qty: 90 RF: 0 Discontinued metformin 500 mg tablet See Rx Instructions .ROUTE .COMPLEX Qty: 60 RF: 0 No Action aspirin [Adult Low Dose Aspirin] 81 mg tablet,delayed release (DR/EC) 81 mg PO DAILY RF: 0 amiodarone 400 mg tablet 400 mg PO BID Qty: 60 RF: 0 (DME) blood sugar diagnostic [Blood Glucose Test] Strip See Rx Instructions .ROUTE .MEDSUPPLY Qty: 50 RF: 6 (DME) blood-glucose meter [Blood Glucose Monitoring] Kit See Rx Instructions .ROUTE .MEDSUPPLY Qty: 1 RF: 0 (DME) Bi-Pap machine See Rx Instructions .Route .MEDSUPPLY Qty: 1 RF: 0 potassium chloride 10 mEq capsule, extended release 20 meq PO BID Qty: 120 RF: 5 furosemide 40 mg tablet 40 mg PO BID Qty: 60 RF: 5 carvedilol 12.5 mg tablet 12.5 mg PO BID Qty: 60 RF: 3 lisinopril 20 mg Tablet 20 mg PO DAILY MDD see pharmacy comment RF: 0 celecoxib 200 mg capsule 200 mg PO BID RF: 0 atorvastatin 80 mg tablet 80 mg PO DAILY RF: 0 digoxin 125 mcg (0.125 mg) tablet 0.125 mcg PO DAILY RF: 0 Discharge Orders: Discharge ED (Routine); Ordered 07/27/21 Ordered By: Delmis Cueto Referrals: Inez Velásquez MD [Primary Care Provider] - Activity Restrictions/Additional Instructions: You need to begin checking your blood sugars twice daily and keeping a log to discuss with your primary care doctor. As we discussed we are increasing your Metformin to 1000 mg in the mornings. You are to keep your normal dose of 500 mg in the evening. Please call your primary care provider on Friday to schedule a follow-up visit. Coding Level of Care Code ED Sales Management Trainee for Chg Fwd Exam Comprehensive
[2021-07-27 15:20] LABS: Basophils # 0.1 10^3/uL (0.0-0.1); Basophils % 0.8 %; Eosinophils # 0.1 10^3/uL (0.0-0.8); Eosinophils % 0.9 %; Hematocrit 44.5 % (42.0-52.0); Lymphocytes # 1.7 10^3/uL (0.8-4.8); Lymphocytes % 16.8 %; Mean Corpuscular HGB Conc 33.7 g/dL (30.0-36.0); Mean Corpuscular Hemoglobin 29.8 pg (28.0-34.0); Mean Corpuscular Volume 88.3 fl (80-94); Mean Platelet Volume 11.2 fL (7.4-10.4); Monocytes # 0.6 10^3/uL (0.2-0.9); Monocytes % 5.4 %; Neutrophils # 7.81 10^3/uL (1.8-7.7); Neutrophils % 75.8 %; Nucleated Red Blood Cells % 0 %; Platelet Count 207 10^3/cmm (130-400); Red Blood Count 5.04 10^6/uL (4.1-5.3); Red Cell Distribution Width 12.5 % (12.1-15.1); White Blood Count 10.3 10^3/uL (4.0-10.0)
[2021-07-27 15:37] LABS: Alanine Aminotransferase 54 U/L (0-41); Albumin Level 4.5 g/dL (3.5-5.2); Alkaline Phosphatase 103 IU/L (40-130); Aspartate Amino Transferase 50 U/L (0-40); Blood Urea Nitrogen 18 mg/dL (6-20); Calcium 9.3 mg/dL (8.5-10.5); Carbon Dioxide 24 mmol/L (22-29); Chloride 101 mmol/L (98-107); Globulin 2.7 g/dL (1.3-4.6); Glomerular Filtration Rate 115.4 mL/min (90-130); Glucose 322 mg/dL (65-115); Osmolality Calculated 298 mOsm/kg (285-295); Sodium 137 mmol/L (136-145); Total Bilirubin 0.8 mg/dL (0.15-1.2); Total Protein 7.2 g/dL (6.6-8.7)
[2021-07-27 15:39] LABS: Anion Gap 16.5 (5-19); Potassium 4.5 mmol/L (3.5-5.1)
[2021-07-27] MEDS: insulin regular-human 100 units/1 mL 8 UNIT IVP (15:47)
[2021-07-27 16:23] LABS: Add Urine Microscopic? YES; Bilirubin Urine Neg (Negative); Blood Urine Neg (Negative); Glucose Urine UA 4+ (Normal); Ketones Urine Negative (Negative); Leukocyte Esterase Urine Negative (Negative); Nitrate Urine Positive (Negative); Protein Urine Neg (Negative); Specific Gravity, Urine 1.015 (1.005-1.030); Urine Appearance Clear (CLEAR); Urine Color Straw (Yellow); Urobilinogen Urine Norm (Negative); pH Urine 5 (5-7)
[2021-07-27 16:24] LABS: Glucose Point of Care 255 mg/dL (70-110)
[2021-07-27 16:28] LABS: Add Urine Culture? Yes; Bacteria Urine 2+ /hpf; Mucus Urine TRACE /hpf; Squamous Epithelial Cell Urine 0-4 /hpf (0-5); WBC Urine 0-4 /hpf (0-5)
[2021-07-27 16:29] LABS: Ketone (Acetest) Serum Negative (Negative)
[2021-07-27 17:25] VITALS: BP 147/86; PULSE 78; RESP 18; O2SAT 99
== END 2021-07-27 17:26 | disposition home or self-care (01) ==
PROVIDERS: Emergency Provider Physician Assistant; PCP Family Medicine
DX: E11.65 Type 2 diabetes mellitus with hyperglycemia (principal); I10 Essential (primary) hypertension; I11.0 Hypertensive heart disease with heart failure; I50.9 Heart failure, unspecified; Z95.0 Presence of cardiac pacemaker; Z87.891 Personal history of nicotine dependence; Z79.82 Long term (current) use of aspirin; Z79.01 Long term (current) use of anticoagulants; Z79.84 Long term (current) use of oral hypoglycemic drugs
CPT/HCPCS: 36416; 71045; 80053; 81001; 82009; 82962; 85025; 87086; 96374; 99283; J1815

== ENCOUNTER → 2021-08-02 12:14 | Outpatient (BNVA) | payer OTHER, SELFPAY | PROVIDERS: PCP Family Medicine; Visit Provider Nurse Practitioner Family | DX: E11.9 Type 2 diabetes mellitus without complications (principal) | CPT/HCPCS: 80053; 80061; 83036; 85025 ==

== ENCOUNTER → 2021-09-05 10:22 | Outpatient (BNVA) | payer OTHER, SELFPAY | PROVIDERS: PCP Family Medicine; Visit Provider Nurse Practitioner Family | DX: Z11.52 Encounter for screening for COVID-19 (principal); Z20.822 Contact with and (suspected) exposure to COVID-19 | CPT/HCPCS: 87635 ==

== ENCOUNTER → 2022-02-13 09:29 | Outpatient (BNVA) | payer SELFPAY | PROVIDERS: PCP Family Medicine; Visit Provider Family Medicine | DX: I10 Essential (primary) hypertension (principal); E11.9 Type 2 diabetes mellitus without complications; E78.5 Hyperlipidemia, unspecified; Z12.5 Encounter for screening for malignant neoplasm of prostate; E78.2 Mixed hyperlipidemia; I50.22 Chronic systolic (congestive) heart failure | CPT/HCPCS: 80053; 80061; 83036; 83721; 84443; 85025; G0103 ==

== ENCOUNTER → 2022-05-08 11:51 | Outpatient (BNVA) | payer MEDICAID, SELFPAY | PROVIDERS: PCP Family Medicine; Visit Provider Family Medicine | DX: I10 Essential (primary) hypertension (principal); E11.9 Type 2 diabetes mellitus without complications; E78.5 Hyperlipidemia, unspecified; E78.2 Mixed hyperlipidemia; Z12.5 Encounter for screening for malignant neoplasm of prostate; I50.22 Chronic systolic (congestive) heart failure | CPT/HCPCS: 80053; 80061; 83036; 84443; 85025 ==

== ENCOUNTER → 2022-05-16 14:00 | Outpatient (BNVA) | payer MEDICAID, SELFPAY | PROVIDERS: PCP Family Medicine; Visit Provider Nurse Practitioner Family | DX: Z95.810 Presence of automatic (implantable) cardiac defibrillator (principal); I11.0 Hypertensive heart disease with heart failure; I50.9 Heart failure, unspecified | CPT/HCPCS: 93284; 99214 ==

== ENCOUNTER → 2022-08-08 15:30 | Outpatient (BNVA) | payer MEDICAID, SELFPAY | PROVIDERS: PCP Family Medicine; Visit Provider Family Medicine | DX: I10 Essential (primary) hypertension (principal); E11.9 Type 2 diabetes mellitus without complications; E78.5 Hyperlipidemia, unspecified; Z12.5 Encounter for screening for malignant neoplasm of prostate; I50.22 Chronic systolic (congestive) heart failure; E78.2 Mixed hyperlipidemia | CPT/HCPCS: 80053; 80061; 83036; 84443; 85025 ==

== ENCOUNTER → 2022-09-26 10:30 | Outpatient (BNVA) | payer MEDICAID, SELFPAY | PROVIDERS: PCP Family Medicine; Visit Provider Nurse Practitioner Family | DX: M25.511 Pain in right shoulder (principal) | CPT/HCPCS: 73030 ==

== ENCOUNTER → 2022-12-02 16:51 | Outpatient (BNVA) | payer MEDICAID, SELFPAY | PROVIDERS: PCP Family Medicine; Visit Provider Family Medicine | DX: R05.9 Cough, unspecified (principal); L70.0 Acne vulgaris; J20.9 Acute bronchitis, unspecified | CPT/HCPCS: 87400; 87426 ==

== ENCOUNTER → 2023-01-28 11:59 | Outpatient (BNVA) | payer MEDICAID, SELFPAY | PROVIDERS: PCP Family Medicine; Visit Provider Family Medicine | DX: G56.21 Lesion of ulnar nerve, right upper limb (principal) | CPT/HCPCS: 80053; 85025; 88184; 88185 ==

== ENCOUNTER → 2023-08-04 10:33 | Outpatient (BNVA) | payer MEDICAID, SELFPAY | PROVIDERS: PCP Family Medicine; Visit Provider Internal Medicine Cardiovascular Disease | DX: I49.01 Ventricular fibrillation (principal); I42.8 Other cardiomyopathies; I11.0 Hypertensive heart disease with heart failure; I50.22 Chronic systolic (congestive) heart failure; E78.2 Mixed hyperlipidemia; G47.33 Obstructive sleep apnea (adult) (pediatric); Z95.810 Presence of automatic (implantable) cardiac defibrillator; Z87.891 Personal history of nicotine dependence | CPT/HCPCS: 99203 ==

== ENCOUNTER 2023-08-07 12:53 | Outpatient (CLI) | payer MEDICAID, SELFPAY ==
--- NOTE | 2023-08-07 13:00 | USCV_ITS ---
Tyree Ramirez Age: 63 Gender: M : 1960 Exam Date: 08/07/2023 13:04 Ordering Phys: Bryan Rueda MD ([email or web address]) Technologist: Maegan Montiel Exam Location: [facility] – [place] Indication: PRE OP CLEARANCE BP: 120 / 60 HR: 72 Rhythm: Sinus Technical Quality: Adequate MEASUREMENTS (Male / Female) Normal Values 2D ECHO LV Diastolic Diameter PLAX 6.1 cm 4.2 - 5.9 / 3.9 - 5.3 cm LV Systolic Diameter PLAX 5.6 cm LV Chamber Size 4.0 cm IVS Diastolic Thickness 1.5 cm 0.6 - 1.0 / 0.6 - 0.9 cm IVS Systolic Thickness 1.9 cm LVPW Diastolic Thickness 2.3 cm 0.6 - 1.0 / 0.6 - 0.9 cm LVPW Systolic Thickness 1.7 cm RV Chamber Size 3.5 cm LVOT Diameter 2.0 cm LV Ejection Fraction 2D Teich 9.8 % LV Ejection Fraction MOD 2C 51.2 % LV Ejection Fraction 2C AL 52.5 % LA Diameter 3.5 cm LA Width 3.3 cm LA Height 5.0 cm RA Width 4.4 cm RA Height 5.0 cm Aorta at Sinotubular Diameter 3.3 cm IVC Diameter 2.1 cm M-MODE Aortic Annulus Diameter 4.4 cm LA Ao Ratio MM 0.9 MV E Point Septal Separation 1.9 cm DOPPLER AV Peak Velocity 142.0 cm/s LVOT Peak Velocity 67.3 cm/s AV Area Cont Eq vti 1.9 cm squared AV Area Cont Eq pk 1.5 cm squared MV Area PHT 4.8 cm squared Mitral E to A Ratio 2.8 MV E' Velocity 63.0 cm/s Mitral E to MV E' Ratio 21.9 Mitral E to LV E' Lateral Ratio 23.2 Mitral E to LV E' Septal Ratio 21.2 TR Peak Velocity 85.4 cm/s TR Peak Gradient 2.9 mmHg TR Mean Velocity 70.4 cm/s TR Mean Gradient 2.2 mmHg TR Velocity Time Integral 24.9 cm TV Peak E Velocity 58.3 cm/s Right Atrial Pressure 3.0 mmHg Pulmonary Artery Systolic Pressu 5.9 mmHg RV Acceleration Time 0.2 s RV Ejection Time 0.3 s RV AcT/ET 0.6 FINDINGS Left Ventricle Diffuse hypokinesia left ventricular ejection fraction of 35-40% (visual). Mildly dilated LV cavity.Grade III/IV diastolic dysfunction (restrictive filling pattern), severely elevated filling pressures. Right Ventricle Pacemaker/defibrillator wire in the right ventricular cavity. Right Atrium Pacemaker/defibrillator wire in the right atrial cavity. Left Atrium Mildly increased left atrial size. Mitral Valve Mild-moderate mitral valve regurgitation. Aortic Valve Thickened aortic valve. Tricuspid Valve Trace tricuspid valve regurgitation. Pulmonic Valve Pulmonic valve not well visualized. Pericardium No Significant or pericardial effusion Aorta Normal aortic annulus size. IVC IVC appears to be of normal size CONCLUSIONS Diffuse hypokinesia left ventricular ejection fraction of 35-40% (visual). Mildly dilated LV cavity.Grade III/IV diastolic dysfunction (restrictive filling pattern), severely elevated filling pressures. Mild-moderate mitral valve regurgitation. Trace tricuspid valve regurgitation. Mildly increased left atrial size. Pacemaker/defibrillator wire were noted in the right atrium and right ventricle. There is no pericardial effusion. The PA pressure could not be calculated to properly because of the poor Doppler signals Compared to the previous study from 03/28/2021, there is some worsening of the LV systolic function Dr Bryan Rueda MD [facility] (Electronically Signed) Final Date: 07 August 2023 17:24 S
== END 2023-08-07 12:54 | disposition home or self-care (01) ==
LOC: RAD 12:53
PROVIDERS: PCP Family Medicine; Visit Provider Internal Medicine Cardiovascular Disease
DX: I34.0 Nonrheumatic mitral (valve) insufficiency (principal); R06.09 Other forms of dyspnea; Z95.810 Presence of automatic (implantable) cardiac defibrillator
CPT/HCPCS: 93306

== ENCOUNTER 2023-09-15 06:00 | Outpatient (RCR) | payer MEDICARE, MEDICAID, SELFPAY | END 2023-09-28 23:59 | disposition home or self-care (01) | LOC: TPT 06:00 | PROVIDERS: Visit Provider Physician Assistant | DX: R29.898 Other symptoms and signs involving the musculoskeletal system (principal) | CPT/HCPCS: 97110; 97140; 97162 ==

== ENCOUNTER → 2023-09-15 11:00 | Outpatient (BNVA) | payer MEDICARE, MEDICAID, SELFPAY | PROVIDERS: PCP Family Medicine; Visit Provider Family Medicine | DX: E11.9 Type 2 diabetes mellitus without complications (principal); I10 Essential (primary) hypertension; E78.5 Hyperlipidemia, unspecified | CPT/HCPCS: 80053; 80061; 83036; 84443; 85025 ==

== ENCOUNTER 2023-09-29 06:00 | Outpatient (RCR) | payer MEDICARE, MEDICAID, SELFPAY | END 2023-10-29 23:59 | disposition home or self-care (01) | LOC: TPT 06:00 | PROVIDERS: PCP Family Medicine; Visit Provider Physician Assistant | DX: R29.898 Other symptoms and signs involving the musculoskeletal system (principal) | CPT/HCPCS: 97110; 97140 ==

== ENCOUNTER 2023-10-30 06:00 | Outpatient (RCR) | payer MEDICARE, MEDICAID, SELFPAY | END 2023-11-27 23:59 | disposition home or self-care (01) | LOC: TPT 06:00 | PROVIDERS: PCP Family Medicine; Visit Provider Physician Assistant | DX: R29.898 Other symptoms and signs involving the musculoskeletal system (principal) | CPT/HCPCS: 97110 ==

== ENCOUNTER 2023-11-28 06:00 | Outpatient (RCR) | payer MEDICARE, MEDICAID, SELFPAY | END 2023-12-28 23:59 | disposition home or self-care (01) | LOC: TPT 06:00 | PROVIDERS: PCP Family Medicine; Visit Provider Physician Assistant | DX: R29.898 Other symptoms and signs involving the musculoskeletal system (principal) | CPT/HCPCS: 97110; 97140 ==

== ENCOUNTER → 2023-12-01 10:35 | Outpatient (BNVA) | payer MEDICARE, MEDICAID, SELFPAY | PROVIDERS: PCP Family Medicine; Visit Provider Family Medicine | DX: R79.89 Other specified abnormal findings of blood chemistry (principal); I49.9 Cardiac arrhythmia, unspecified; I10 Essential (primary) hypertension | CPT/HCPCS: 84439; 84443; 84481 ==

== ENCOUNTER 2023-12-29 06:00 | Outpatient (RCR) | payer MEDICARE, MEDICAID, SELFPAY | END 2024-01-27 23:59 | disposition home or self-care (01) | LOC: TPT 06:00 | PROVIDERS: PCP Family Medicine; Visit Provider Physician Assistant | DX: R53.1 Weakness (principal) | CPT/HCPCS: 97110; 97140 ==

== ENCOUNTER 2024-01-28 06:00 | Outpatient (RCR) | payer MEDICARE, MEDICAID, SELFPAY | END 2024-02-27 23:59 | disposition home or self-care (01) | LOC: TPT 06:00 | PROVIDERS: PCP Family Medicine; Visit Provider Physician Assistant | DX: R53.1 Weakness (principal) | CPT/HCPCS: 97110; 97140 ==

== ENCOUNTER 2024-02-28 06:00 | Outpatient (RCR) | payer MEDICARE, MEDICAID, SELFPAY | END 2024-03-10 23:59 | disposition home or self-care (01) | LOC: TPT 06:00 | PROVIDERS: PCP Family Medicine; Visit Provider Physician Assistant | DX: R29.898 Other symptoms and signs involving the musculoskeletal system (principal) | CPT/HCPCS: 97110; 97140 ==

== ENCOUNTER → 2024-08-04 12:37 | Outpatient (BNVA) | payer MEDICARE, SELFPAY | PROVIDERS: PCP Family Medicine; Visit Provider Internal Medicine Cardiovascular Disease | DX: Z79.01 Long term (current) use of anticoagulants (principal); E78.5 Hyperlipidemia, unspecified; I48.91 Unspecified atrial fibrillation; N18.9 Chronic kidney disease, unspecified | CPT/HCPCS: 36415; 80048; 80076; 84443; 85025; 85610; 99215 ==

== ENCOUNTER → 2024-10-20 10:27 | Outpatient (BNVA) | payer MEDICARE, SELFPAY | PROVIDERS: PCP Nurse Practitioner Family; Visit Provider Nurse Practitioner Family | DX: Z12.5 Encounter for screening for malignant neoplasm of prostate (principal); E11.9 Type 2 diabetes mellitus without complications | CPT/HCPCS: 80053; 80061; 82043; 82607; 83036; 84443; 85025; G0103 ==

== ENCOUNTER → 2024-11-04 11:02 | Outpatient (BNVA) | payer MEDICARE, SELFPAY | PROVIDERS: PCP Nurse Practitioner Family; Visit Provider Nurse Practitioner Family | DX: I11.0 Hypertensive heart disease with heart failure (principal); I50.22 Chronic systolic (congestive) heart failure; Z95.810 Presence of automatic (implantable) cardiac defibrillator; I48.91 Unspecified atrial fibrillation; Z87.891 Personal history of nicotine dependence | CPT/HCPCS: 99214 ==

== ENCOUNTER → 2025-01-19 14:49 | Outpatient (BNVA) | payer MEDICARE, SELFPAY | PROVIDERS: PCP Nurse Practitioner Family; Visit Provider Nurse Practitioner Family | DX: M47.894 Other spondylosis, thoracic region (principal) | CPT/HCPCS: 71046 ==

== ENCOUNTER → 2025-06-14 10:41 | Outpatient (BNVA) | payer MEDICARE, SELFPAY | PROVIDERS: PCP Nurse Practitioner Family; Visit Provider Nurse Practitioner Family | DX: E11.9 Type 2 diabetes mellitus without complications (principal); Z79.899 Other long term (current) drug therapy | CPT/HCPCS: 80053; 80061; 82306; 82607; 83036; 83721; 84443; 85025 ==